=== PATIENT | male | born 1950 | race Caucasian/White ===

== ENCOUNTER 2018-02-19 10:28 | Day surgery (SDC) | payer MEDICARE ==
[~2018-02-19 10:28] MED LIST: NS 1,000 ML IV
[2018-02-19] MEDS ORDERED: PROPOFOL 200 MG/20 ML VIAL As Ordered ×2 (10:47)
[2018-02-19] MEDS ORDERED: LIDOCAINE 2% INJ 100 MG/5 ML SDV (FOR ANES.) As Ordered (10:47)
== END 2018-02-19 12:35 | disposition home or self-care (01) ==
LOC: M OPP 10:28
DX: Z12.11 Encounter for screening for malignant neoplasm of colon (principal); D12.3 Benign neoplasm of transverse colon
CPT/HCPCS: 45385

== ENCOUNTER → 2022-03-19 | Outpatient (REF) | payer MEDICARE | LOC: M LAB REF 14:07 | PROVIDERS: ATTEND Nurse Practitioner Adult Health | DX: E67.3 Hypervitaminosis D (principal) ==

== ENCOUNTER → 2023-03-25 | Outpatient (REF) | payer MEDICARE | LOC: M LAB REF 12:26 | PROVIDERS: ATTEND Nurse Practitioner Adult Health | DX: E67.3 Hypervitaminosis D (principal) ==

== ENCOUNTER 2023-05-22 06:51 | Day surgery (SDC) | payer MEDICARE ==
[~2023-05-22] VITALS: Ht 172.7 cm; Wt 81.9 kg
[~2023-05-22 06:51] MED LIST changes: +CO Q200C10 PO; +FISH1CAP26 PO; +GINK40CA2 PO; -NS 1,000 ML IV; +NS 1,000 ML IV ONE; +RA T500C2 PO; +VITA100093 PO; +VITAMIN B5 PO; +ZINCLOZ9 PO; +[UNRECOGNIZED DRUG - CODE] PO; +[UNRECOGNIZED DRUG - OTHER] PO
[2023-05-22] MEDS ORDERED: LIDOCAINE 2% 100MG/5ML SDV (FOR ANES.) As Ordered ONE (07:04)
[2023-05-22] MEDS ORDERED: propofoL 200 MG/20 ML VIAL As Ordered ONE (07:04)
[2023-05-22] MEDS ORDERED: CIPRODEX OTIC SUSP 7.5ML As Ordered ONE (07:11)
[2023-05-22] MEDS ORDERED: PHENYLEPHRINE 0.5% NASAL SPRAY 15 ML As Ordered ONE (07:11)
[2023-05-22] MEDS ORDERED: fentaNYL 100 MCG/2 ML INJECTION As Ordered ONE (07:44)
[2023-05-22] MEDS ORDERED: ALBUTEROL SULFATE 2.5MG/0.5ML INH NEB SOLN As Ordered ONE (09:19)
[2023-05-22 09:22] VITALS: BP 102/62; TEMP 96.8; O2SAT 96
== END 2023-05-22 09:25 | disposition home or self-care (01) ==
LOC: M OPP 06:51
PROVIDERS: ATTEND Surgery
DX: Z86.010 Personal history of colon polyps (principal); Z80.0 Family history of malignant neoplasm of digestive organs; K64.4 Residual hemorrhoidal skin tags; Q43.8 Other specified congenital malformations of intestine; K29.80 Duodenitis without bleeding; K20.90 Esophagitis, unspecified without bleeding; D72.820 Lymphocytosis (symptomatic); K31.A0 Gastric intestinal metaplasia, unspecified
CPT/HCPCS: 43239; 88305; G0105; J3010

== ENCOUNTER → 2023-06-11 | Outpatient (CLI) | payer MEDICARE ==
[~2023-06-11] MED LIST changes: -NS 1,000 ML IV ONE
== END ==
LOC: M LAB 10:28
PROVIDERS: ATTEND Physician Assistant
DX: K22.70 Barrett's esophagus without dysplasia (principal); K29.80 Duodenitis without bleeding